=== PATIENT | female | born 1935 | race Caucasian/White ===

== ENCOUNTER 2017-01-25 20:45 | Emergency (ER) | payer MEDICARE ==
[2017-01-25 20:59] VITALS: RESP 18
--- NOTE | 2017-01-25 22:04 | XR ---
EXAMINATION TYPE: XR pelvis AP view DATE OF EXAM: 01/25/2017 CLINICAL HISTORY: Fall and pelvic pain. TECHNIQUE: A single AP view of the pelvis is obtained. COMPARISON: None. FINDINGS: There is no acute fracture/dislocation evident in the pelvis. The hip and sacroiliac join ts appear symmetric and unremarkable. The overlying soft tissue appears unremarkable. Well-circumscr ibed probable benign bone island is seen in the left ischial tuberosity. Sacrum is obscured by bowel gas. IMPRESSION: There is no acute fracture or dislocation in the pelvis.
--- NOTE | 2017-01-25 22:50 | CT ---
EXAM: CT Head Without Intravenous Contrast CLINICAL HISTORY: Reason: Pain TECHNIQUE: Axial computed tomography images of the head/brain without intravenous contrast. CTDI is 59.43 mGy and DLP is 1152.93 mGy-cm This CT exam was performed using one or more of the following dose reduction techniques: automated exposure control, adjustment of the mA and/or kV according to patient size, and/or use of iterative reconstruction technique. COMPARISON: No relevant prior studies available. FINDINGS: Brain: Involutional changes. No hemorrhage or mass effect. Ventricles: Unremarkable. No ventriculomegaly. Bones/joints: Unremarkable. No acute fracture. Soft tissues: Scalp contusion/hematoma near the vertex. Sinuses: Unremarkable as visualized. No acute sinusitis. Mastoid air cells: Unremarkable as visualized. No mastoid effusion. IMPRESSION: No acute brain or skull injury EXAM: CT Cervical Spine Without Intravenous Contrast CLINICAL HISTORY: Reason: Pain TECHNIQUE: Axial computed tomography images of the cervical spine without intravenous contrast. CTDI is 23.49 mGy and DLP is 489.84 mGy-cm This CT exam was performed using one or more of the following dose reduction techniques: automated exposure control, adjustment of the mA and/or kV according to patient size, and/or use of iterative reconstruction technique. COMPARISON: No relevant prior studies available. FINDINGS: Vertebrae: No acute fracture. Discs/spinal canal/neural foramina: Mild multilevel degenerative change. Soft tissues: Carotid atherosclerosis. Lung apices: Mild interstitial thickening. Cannot exclude pulmonary edema. Clinical correlation is advised. IMPRESSION: No fracture. Mild apical interstitial thickening. Cannot exclude pulmonary edema.
--- NOTE | 2017-01-25 22:54 | ED ---
General Adult HPI - General Chief complaint: Fall Stated complaint: fall Time Seen by Provider: 01/25/17 21:19 Source: EMS, RN notes reviewed, old records reviewed Mode of arrival: EMS Limitations: no limitations - History of Present Illness Initial comments: Is an 7-year-old female here status post fall, tripping follow dancing fondling her head and her buttocks. Patient has no loss of bowel or bladder loss of consciousness no blood thinners. Patient does have mild bleeding from the posterior aspect of her head. She does deny any other complaints of pain, denies headache. - Related Data Home Medications Medication Instructions Recorded Confirmed Ascorbic Acid [Vitamin C] 500 mg PO DAILY 01/25/17 01/25/17 Atenolol 25 mg PO DAILY 01/25/17 01/25/17 Biotin 5 mg PO DAILY 01/25/17 01/25/17 Calcium Carbonate [Calcium] 1,200 mg PO DAILY 01/25/17 01/25/17 Flaxseed Oil [[place]-3 Flaxseed Oil] 1,000 mg PO DAILY 01/25/17 01/25/17 Hydrochlorothiazide [Hydrodiuril] 12.5 mg PO DAILY 01/25/17 01/25/17 Levothyroxine Sodium [Synthroid] 112 mcg PO DAILY 01/25/17 01/25/17 Liothyronine Sodium 12.5 mcg PO DAILY 01/25/17 01/25/17 Lisinopril [Zestril] 10 mg PO DAILY 01/25/17 01/25/17 Montelukast [Singulair] 10 mg PO DAILY 01/25/17 01/25/17 Omeprazole 20 mg PO DAILY 01/25/17 01/25/17 Simvastatin [Zocor] 40 mg PO HS 01/25/17 01/25/17 Vitamin B Complex 1 cap PO DAILY 01/25/17 01/25/17 Warfarin [Coumadin] 2.5 mg PO SUWE 01/25/17 01/25/17 Warfarin [Coumadin] 5 mg PO MOTUTHFRSA 01/25/17 01/25/17 l Acidophil/B Lactis/B Longum 460 mg PO DAILY 01/25/17 01/25/17 [Florajen3 Capsule] metFORMIN HCL [Glucophage] 500 mg PO BID 08/07/17 08/07/17 traZODone HCL 50 mg PO HS PRN 01/25/17 01/25/17 traZODone HCL 100 mg PO HS PRN 01/25/17 01/25/17 Allergies Allergy/AdvReac Type Severity Reaction Status Date / Time morphine AdvReac Nausea & Verified 01/25/17 22:09 Vomiting Review of Systems ROS Statement: Those systems with pertinent positive or pertinent negative responses have been documented in the HPI. ROS Other: All systems not noted in ROS Statement are negative. Past Medical History Past Medical History: Atrial Fibrillation, Diabetes Mellitus, GERD/Reflux, Hyperlipidemia, Hypertension, Thyroid Disorder History of Any Multi-Drug Resistant Organisms: None Reported Past Surgical History: Appendectomy, Hysterectomy, Orthopedic Surgery, Tonsillectomy, Tubal Ligation Additional Past Surgical History / Comment(s): thyroidectomy Past Psychological History: No Psychological Hx Reported Smoking Status: Never smoker Past Alcohol Use History: None Reported Past Drug Use History: None Reported General Exam Limitations: no limitations General appearance: alert, in no apparent distress Head exam: Present: normocephalic, normal inspection. Absent: atraumatic (4 Centimeter posterior occiput had laceration) Eye exam: Present: normal appearance, PERRL, EOMI. Absent: scleral icterus, conjunctival injection, periorbital swelling ENT exam: Present: normal exam, mucous membranes moist Neck exam: Present: normal inspection. Absent: tenderness, meningismus, lymphadenopathy Respiratory exam: Present: normal lung sounds bilaterally. Absent: respiratory distress, wheezes, rales, rhonchi, stridor Cardiovascular Exam: Present: regular rate, normal rhythm, normal heart sounds. Absent: systolic murmur, diastolic murmur, rubs, gallop, clicks GI/Abdominal exam: Present: soft, normal bowel sounds. Absent: distended, tenderness, guarding, rebound, rigid Extremities exam: Present: normal inspection, full ROM, normal capillary refill. Absent: tenderness, pedal edema, joint swelling, calf tenderness Back exam: Present: normal inspection Neurological exam: Present: alert, oriented X3, CN II-XII intact Psychiatric exam: Present: normal affect, normal mood Skin exam: Present: warm, dry, intact, normal color. Absent: rash Course Vital Signs 01/25/17 20:50 Temperature 97.5 F L Pulse Rate 105 H Respiratory 18 Rate Blood Pressure 172/97 O2 Sat by Pulse 98 Oximetry - Reevaluation(s) Reevaluation #1: 01/25/17 22:52 Patient is in no acute pain, not requiring any medications. Asymptomatic Procedures - Laceration Laceration #1 Consent Obtained: verbal consent Time Out Performed: Yes Indication: laceration Site: scalp Size (cm): 4 Description: linear Pre-repair: wound explored, irrigated extensively Type of Sutures: other (alexia) Technique: simple, interrupted Complications: pain Patient Tolerated Procedure: well Medical Decision Making - Medical Decision Making 81 female here status post fall, closed head injury, no blood thinners, laceration repaired, patient discharged - Radiology Data Radiology results: report reviewed (CT brain C-spine negative for acute disease , right pelvis negative for acute disease), image reviewed Disposition Clinical Impression: Fall, Head injuries, Scalp laceration Disposition: HOME SELF-CARE Condition: Good Instructions: Fall Prevention for Older Adults (ED) Referrals: Lesly Galvan DO [Primary Care Provider] - 1-2 days
[2017-01-25 23:15] VITALS: BP 182/79; PULSE 80; TEMP 98
== END 2017-01-25 23:16 | disposition home or self-care (01) ==
LOC: EC 20:45
DX: S01.01XA Laceration without foreign body of scalp, initial encounter (principal); I48.91 Unspecified atrial fibrillation; I10 Essential (primary) hypertension; K21.9 Gastro-esophageal reflux disease without esophagitis; E78.5 Hyperlipidemia, unspecified; E11.9 Type 2 diabetes mellitus without complications; Z79.01 Long term (current) use of anticoagulants; Z79.84 Long term (current) use of oral hypoglycemic drugs; Z79.899 Other long term (current) drug therapy; Z88.5 Allergy status to narcotic agent; W01.0XXA Fall on same level from slipping, tripping and stumbling without subsequent striking against object, initial encounter; Y93.41 Activity, dancing
CPT/HCPCS: 70450; 72125; 72170; 99285

== ENCOUNTER → 2017-09-24 | Outpatient (CLI) | payer MEDICARE ==
--- NOTE | 2017-09-27 10:22 | MM ---
Reason for exam: screening (asymptomatic). Last mammogram was performed 1 year and 9 months ago. History: Patient is postmenopausal. Family history of breast cancer in daughter at age 40. Benign excisional biopsy of the left breast, 1995. Physical Findings: A clinical breast exam by your physician is recommended on an annual basis and results should be correlated with mammographic findings. MG 3D Screening Mammo W/Cad Bilateral CC and MLO view(s) were taken. Prior study comparison: December 10, 2015, bilateral MG 3d screening mammo w/cad. October 24, 2014, bilateral MG screening mammo w CAD. The breast tissue is heterogeneously dense. This may lower the sensitivity of mammography. There is chronic nodularity bilaterally. There is no dominant lesion. No significant changes when compared with prior studies. ASSESSMENT: Benign, BI-RAD 2 RECOMMENDATION: Routine screening mammogram of both breasts in 1 year.
== END | disposition home or self-care (01) ==
LOC: RADMAMWWP 14:07
PROVIDERS: ATTEND Family Medicine
DX: Z12.31 Encounter for screening mammogram for malignant neoplasm of breast (principal)
CPT/HCPCS: 77063; 77067

== ENCOUNTER → 2018-11-15 | Outpatient (CLI) | payer MEDICARE ==
[2018-11-15 12:13] LABS: INR 1.1 (<1.2); Partial Thromboplastin Time 25.8 sec (22.0-30.0); Prothrombin Time 11.7 sec (9.0-12.0)
== END ==
LOC: LABWHC1 10:47
PROVIDERS: ATTEND Physical Medicine & Rehabilitation
DX: Z51.81 Encounter for therapeutic drug level monitoring (principal); Z79.01 Long term (current) use of anticoagulants
CPT/HCPCS: 36415; 85610; 85730

== ENCOUNTER → 2018-11-29 | Outpatient (CLI) | payer MEDICARE ==
[2018-11-29 11:38] LABS: INR 1.1 (<1.2); Partial Thromboplastin Time 25.6 sec (22.0-30.0); Prothrombin Time 11.5 sec (9.0-12.0)
== END | disposition home or self-care (01) ==
LOC: LABWHC1 09:47
PROVIDERS: ATTEND Physical Medicine & Rehabilitation
DX: M54.5 Low back pain (principal); M48.062 Spinal stenosis, lumbar region with neurogenic claudication; M47.817 Spondylosis without myelopathy or radiculopathy, lumbosacral region; M51.17 Intervertebral disc disorders with radiculopathy, lumbosacral region
CPT/HCPCS: 36415; 85610; 85730

== ENCOUNTER → 2019-03-21 | Outpatient (CLI) | payer MEDICARE ==
[2019-03-21 14:09] LABS: Prothrombin Time 10.4 sec (9.0-12.0)
== END | disposition home or self-care (01) ==
LOC: LABWHC1 12:38
PROVIDERS: ATTEND Physical Medicine & Rehabilitation
DX: M54.5 Low back pain (principal); M48.062 Spinal stenosis, lumbar region with neurogenic claudication; M51.17 Intervertebral disc disorders with radiculopathy, lumbosacral region; M16.12 Unilateral primary osteoarthritis, left hip; M25.552 Pain in left hip; E11.9 Type 2 diabetes mellitus without complications; M47.27 Other spondylosis with radiculopathy, lumbosacral region; Z79.01 Long term (current) use of anticoagulants
CPT/HCPCS: 36415; 85610

== ENCOUNTER 2020-08-13 12:27 | Emergency (ER) | payer MEDICARE ==
[2020-08-13] MEDS ORDERED: SODIUM CHLORIDE 0.9% 500 ML 500 ML IV ONE (13:59)
--- NOTE | 2020-08-13 13:59 | ED ---
General Adult HPI - General Chief complaint: Recheck/Abnormal Lab/Rx Stated complaint: abnormal EKG Time Seen by Provider: 08/13/20 13:42 Source: patient, RN notes reviewed, old records reviewed Mode of arrival: wheelchair Limitations: no limitations - History of Present Illness Initial comments: 85-year-old female history of atrial fibrillation presenting for evaluation of abnormal EKG, fatigue. Patient was seen by primary care physician today and s ent to the emergency department for evaluation. She received her coronavirus vaccine approximately one week ago and since that time she's had increased fatigue and generalized weakness. No chest pain or dyspnea. No abdominal pain nausea or vomiting. No fever. No lower extremity pain or swelling. No focal numbness or weakness. - Related Data Home Medications Medication Instructions Recorded Confirmed Ascorbic Acid [Vitamin C] 500 mg PO DAILY 01/25/17 01/25/17 Biotin 5 mg PO DAILY 01/25/17 01/25/17 Calcium Carbonate [Calcium] 1,200 mg PO DAILY 01/25/17 01/25/17 Flaxseed Oil [[place]-3 Flaxseed Oil] 1,000 mg PO DAILY 01/25/17 01/25/17 Levothyroxine Sodium [Synthroid] 112 mcg PO DAILY 01/25/17 01/25/17 Liothyronine Sodium 12.5 mcg PO DAILY 01/25/17 01/25/17 Lisinopril [Zestril] 10 mg PO DAILY 01/25/17 01/25/17 Montelukast [Singulair] 10 mg PO DAILY 01/25/17 01/25/17 Omeprazole 20 mg PO DAILY 01/25/17 01/25/17 Simvastatin [Zocor] 40 mg PO HS 01/25/17 01/25/17 Vitamin B Complex 1 cap PO DAILY 01/25/17 01/25/17 Warfarin [Coumadin] 2.5 mg PO SUWE 01/25/17 01/25/17 Warfarin [Coumadin] 5 mg PO MOTUTHFRSA 01/25/17 01/25/17 atenoloL [Atenolol] 25 mg PO DAILY 01/25/17 01/25/17 hydroCHLOROthiazide [Hydrodiuril] 12.5 mg PO DAILY 01/25/17 01/25/17 l Acidophil/B Lactis/B Longum 460 mg PO DAILY 01/25/17 01/25/17 [Florajen3 Capsule] metFORMIN HCL [Glucophage] 500 mg PO BID 01/25/17 01/25/17 traZODone HCL 50 mg PO HS PRN 01/25/17 01/25/17 traZODone HCL 100 mg PO HS PRN 01/25/17 01/25/17 Allergies Allergy/AdvReac Type Severity Reaction Status Date / Time morphine AdvReac Nausea & Verified 08/13/20 12:50 Vomiting Review of Systems ROS Statement: Those systems with pertinent positive or pertinent negative responses have been documented in the HPI. ROS Other: All systems not noted in ROS Statement are negative. Past Medical History Past Medical History: Atrial Fibrillation, Diabetes Mellitus, GERD/Reflux, Hyperlipidemia, Hypertension, Thyroid Disorder History of Any Multi-Drug Resistant Organisms: None Reported Past Surgical History: Appendectomy, Hysterectomy, Orthopedic Surgery, Tonsillectomy, Tubal Ligation Additional Past Surgical History / Comment(s): thyroidectomy Past Psychological History: No Psychological Hx Reported Smoking Status: Never smoker Past Alcohol Use History: None Reported Past Drug Use History: None Reported General Exam Limitations: no limitations General appearance: alert, in no apparent distress Head exam: Present: atraumatic, normocephalic Eye exam: Present: normal appearance, PERRL ENT exam: Present: mucous membranes dry Neck exam: Present: normal inspection. Absent: tenderness, meningismus Respiratory exam: Present: normal lung sounds bilaterally. Absent: respiratory distress, wheezes, rales Cardiovascular Exam: Present: regular rate, irregular rhythm GI/Abdominal exam: Present: soft. Absent: distended, tenderness, guarding, rebound Extremities exam: Present: normal inspection, normal capillary refill. Absent: pedal edema, calf tenderness Neurological exam: Present: alert, oriented X3, CN II-XII intact. Absent: motor sensory deficit Psychiatric exam: Present: normal affect, normal mood Skin exam: Present: warm, dry, intact. Absent: cyanosis, diaphoretic Course Vital Signs 08/13/20 08/13/20 12:50 14:25 Temperature 98 F Pulse Rate 111 H Pulse Rate [ 97 Supine [employer]] Respiratory 16 Rate Blood Pressure 93/65 O2 Sat by Pulse 95 Oximetry EKG Findings - EKG Comments: EKG Findings:: EKG: Atrial fibrillation, rate of 99, QRS duration 78, QTC 441, no ST segment elevation. Medical Decision Making - Medical Decision Making 85-year-old female with fatigue after coronavirus vaccine. An abnormal EKG from primary care, EKG showing only PVC, no other acute findings outside of atrial fibrillation, no definitive ischemic changes. EKG repeated here which again shows A. fib without definitive ischemic changes. Patient has chest x-ray which is mostly clear, there is some concerning right perihilar infiltrate although the patient has had no cough or fever, no chest pain, no leukocytosis. She has a CMP showing a creatinine 1.13 with no baseline magnesium 1.3 which may be cont ributing to her symptoms. Troponin negative. I did offer admission for IV fluids, R replacement. Patient declines she prefers to be discharged home. She is instructed on magnesium replacement and will return to emergency department with worsening or changing symptoms. - Lab Data Result diagrams: 08/13/20 14:05 08/13/20 14:05 Lab Results 08/13/20 08/13/20 08/13/20 Range/Units 14:05 14:05 14:05 WBC 7.3 (3.8-10.6) k/uL RBC 4.36 (3.80-5.40) m/uL Hgb 13.5 (11.4-16.0) gm/dL Hct 38.6 (34.0-46.0) % MCV 88.4 (80.0-100.0) fL MCH 30.8 (25.0-35.0) pg MCHC 34.9 (31.0-37.0) g/dL RDW 14.0 (11.5-15.5) % Plt Count 238 (150-450) k/uL MPV 8.0 Neutrophils % 76 % Lymphocytes % 14 % Monocytes % 8 % Eosinophils % 0 % Basophils % 0 % Neutrophils # 5.6 (1.3-7.7) k/uL Lymphocytes # 1.0 (1.0-4.8) k/uL Monocytes # 0.6 (0-1.0) k/uL Eosinophils # 0.0 (0-0.7) k/uL Basophils # 0.0 (0-0.2) k/uL PT 29.2 H (9.0-12.0) sec INR 3.0 H (<1.2) APTT 36.5 H (22.0-30.0) sec Sodium 134 L (137-145) mmol/L Potassium 4.9 (3.5-5.1) mmol/L Chloride 100 (98-107) mmol/L Carbon Dioxide 22 (22-30) mmol/L Anion Gap 12 mmol/L BUN 28 H (7-17) mg/dL Creatinine 1.13 H (0.52-1.04) mg/dL Est GFR (CKD-EPI)AfAm 51 (>60 ml/min/1.73 sqM) Est GFR (CKD-EPI)NonAf 44 (>60 ml/min/1.73 sqM) Glucose 102 H (74-99) mg/dL Calcium 9.7 (8.4-10.2) mg/dL Magnesium 1.3 L (1.6-2.3) mg/dL Total Bilirubin 0.5 (0.2-1.3) mg/dL AST 42 H (14-36) U/L ALT 26 (4-34) U/L Alkaline Phosphatase 83 (38-126) U/L Troponin I (0.000-0.034) ng/mL NT-Pro-B Natriuret Pep pg/mL Total Protein 7.1 (6.3-8.2) g/dL Albumin 4.3 (3.5-5.0) g/dL 08/13/20 08/13/20 Range/Units 14:05 14:05 WBC (3.8-10.6) k/uL RBC (3.80-5.40) m/uL Hgb (11.4-16.0) gm/dL Hct (34.0-46.0) % MCV (80.0-100.0) fL MCH (25.0-35.0) pg MCHC (31.0-37.0) g/dL RDW (11.5-15.5) % Plt Count (150-450) k/uL MPV Neutrophils % % Lymphocytes % % Monocytes % % Eosinophils % % Basophils % % Neutrophils # (1.3-7.7) k/uL Lymphocytes # (1.0-4.8) k/uL Monocytes # (0-1.0) k/uL Eosinophils # (0-0.7) k/uL Basophils # (0-0.2) k/uL PT (9.0-12.0) sec INR (<1.2) APTT (22.0-30.0) sec Sodium (137-145) mmol/L Potassium (3.5-5.1) mmol/L Chloride (98-107) mmol/L Carbon Dioxide (22-30) mmol/L Anion Gap mmol/L BUN (7-17) mg/dL Creatinine (0.52-1.04) mg/dL Est GFR (CKD-EPI)AfAm (>60 ml/min/1.73 sqM) Est GFR (CKD-EPI)NonAf (>60 ml/min/1.73 sqM) Glucose (74-99) mg/dL Calcium (8.4-10.2) mg/dL Magnesium (1.6-2.3) mg/dL Total Bilirubin (0.2-1.3) mg/dL AST (14-36) U/L ALT (4-34) U/L Alkaline Phosphatase (38-126) U/L Troponin I <0.012 (0.000-0.034) ng/mL NT-Pro-B Natriuret Pep 1290 pg/mL Total Protein (6.3-8.2) g/dL Albumin (3.5-5.0) g/dL Disposition Clinical Impression: Hypomagnesemia, Dehydration Disposition: HOME SELF-CARE Condition: Good Instructions (If sedation given, give patient instructions): Hypomagnesemia (ED), Weakness (ED) Is patient prescribed a controlled substance at d/c from ED?: No Referrals: Lesly Galvan DO [Primary Care Provider] - 1-2 days Time of Disposition: 15:26
[2020-08-13 14:18] LABS: Basophils % (A) 0 %; Eosinophils % (A) 0 %; HCT 38.6 % (34.0-46.0); HGB 13.5 gm/dL (11.4-16.0); Lymphocytes % (A) 14 %; MCH 30.8 pg (25.0-35.0); MCHC 34.9 g/dL (31.0-37.0); MCV 88.4 fL (80.0-100.0); Monocytes # (A) 0.6 k/uL (0-1.0); Monocytes % (A) 8 %; Neutrophils # (A) 5.6 k/uL (1.3-7.7); Neutrophils % (A) 76 %; Platelet Count 238 k/uL (150-450); RBC 4.36 m/uL (3.80-5.40); WBC 7.3 k/uL (3.8-10.6)
--- NOTE | 2020-08-13 14:27 | XR ---
EXAMINATION TYPE: XR chest 2V DATE OF EXAM: 08/13/2020 COMPARISON: NONE HISTORY: Chest pain and weakness. TECHNIQUE: Frontal and lateral views of the chest are obtained. FINDINGS: There is slightly elevated left hemidiaphragm with patchy reticular left basilar anterolat eral right mid lung opacities. No pleural effusion or pneumothorax seen bilaterally. The cardiac silh ouette size is upper limits of normal with atherosclerotic change in the aortic knob. The osseous s tructures are demineralized. Underlying scoliosis centered upper lumbar spine. Cholecystectomy clips. IMPRESSION: Difficult to exclude early acute infiltrates right midlung laterally and left basilar re gion without prior study for comparison.
[2020-08-13 14:28] LABS: Partial Thromboplastin Time 36.5 sec (22.0-30.0); Prothrombin Time 29.2 sec (9.0-12.0)
[2020-08-13 14:42] LABS: Albumin 4.3 g/dL (3.5-5.0); Calcium 9.7 mg/dL (8.4-10.2); Magnesium 1.3 mg/dL (1.6-2.3); Potassium 4.9 mmol/L (3.5-5.1); Total Bilirubin 0.5 mg/dL (0.2-1.3); Total Protein 7.1 g/dL (6.3-8.2)
[2020-08-13] MEDS ORDERED: MAGNESIUM SULFATE-D5W PMX 1 GM in DEXTROSE/WATER 1 100ML.BAG IVPB ONE (15:24)
[2020-08-13] MEDS ORDERED: MAGNESIUM SULFATE-D5W PMX 1 GM in DEXTROSE/WATER 1 100ML.BAG IVPB SCH (15:30)
[2020-08-13 17:07] VITALS: BP 123/83; PULSE 81; RESP 17; TEMP 98.2
== END 2020-08-13 17:07 | disposition home or self-care (01) ==
LOC: EC 12:27
DX: E86.0 Dehydration (principal); E83.42 Hypomagnesemia; I48.91 Unspecified atrial fibrillation; E11.9 Type 2 diabetes mellitus without complications; K21.9 Gastro-esophageal reflux disease without esophagitis; E78.5 Hyperlipidemia, unspecified; I10 Essential (primary) hypertension; E07.9 Disorder of thyroid, unspecified; Z79.01 Long term (current) use of anticoagulants; Z79.890 Hormone replacement therapy; Z79.899 Other long term (current) drug therapy; Z79.84 Long term (current) use of oral hypoglycemic drugs; Z88.5 Allergy status to narcotic agent; Z90.49 Acquired absence of other specified parts of digestive tract; Z90.710 Acquired absence of both cervix and uterus; Z98.51 Tubal ligation status
CPT/HCPCS: 36415; 93005; 83880; 80053; 83735; 84484; 85025; 85610; 85730; 71046; 99284; 96365; J3475

== ENCOUNTER → 2021-04-10 | Outpatient (CLI) | payer MEDICARE ==
--- NOTE | 2021-04-14 11:01 | MM ---
Reason for exam: screening (asymptomatic). Last mammogram was performed 3 years and 6 months ago. History: Patient is postmenopausal. Family history of breast cancer in daughter at age 40. Benign excisional biopsy of the left breast, 1995. Physical Findings: A clinical breast exam by your physician is recommended on an annual basis and results should be correlated with mammographic findings. MG 3D Screening Mammo W/Cad Bilateral CC and MLO view(s) were taken. XCCL view(s) were taken of the left breast. Prior study comparison: September 24, 2017, bilateral MG 3d screening mammo w/cad. December 10, 2015, bilateral MG 3d screening mammo w/cad. There are scattered fibroglandular densities. There is chronic nodularity bilaterally. No significant changes when compared with prior studies. ASSESSMENT: Benign, BI-RAD 2 RECOMMENDATION: Routine screening mammogram of both breasts in 1 year.
== END | disposition home or self-care (01) ==
LOC: RADMAMWWP 11:32
PROVIDERS: ATTEND Family Medicine
DX: Z12.31 Encounter for screening mammogram for malignant neoplasm of breast (principal); Z80.3 Family history of malignant neoplasm of breast
CPT/HCPCS: 77063; 77067

== ENCOUNTER → 2022-04-13 | Outpatient (CLI) | payer MEDICARE ==
--- NOTE | 2022-04-14 09:52 | MM ---
Reason for Exam: Screening (asymptomatic). Last screening mammogram was performed 12 month(s) ago. Patient History: Menarche at age 11. First Full-Term at age 20. Hysterectomy at age 49. Postmenopausal. Patient has history of breast feeding. 1995, Benign Excisional Biopsy on the left side. Daughter had breast cancer, age 40. Prior Study Comparison: 12/10/2015 Bilateral Screening Mammogram, [facility]. 09/24/2017 Bilateral Screening Mammogram, [facility]. 04/10/2021 Bilateral Screening Mammogram, [facility]. Tissue Density: There are scattered fibroglandular densities. Findings: Analyzed By CAD. There is no suspicious group of microcalcifications or new suspicious mass in either breast. Chronic nodularity bilaterally. Benign-appearing calcifications bilaterally. No significant change from prior exams. Overall Assessment: Benign, BI-RAD 2 Management: Screening Mammogram of both breasts in 1 year. A clinical breast exam by your physician is recommended on an annual basis and results should be correlated with mammographic findings. Electronically signed and approved by: Luan Yadav D.O.
== END | disposition home or self-care (01) ==
LOC: RADMAMWWP 11:40
PROVIDERS: ATTEND Family Medicine
DX: Z12.31 Encounter for screening mammogram for malignant neoplasm of breast (principal)
CPT/HCPCS: 77063; 77067